=== PATIENT | female | born 1965 | race Caucasian/White ===

== ENCOUNTER 2019-03-10 14:49 | Emergency (ER) | payer OTHER ==
[~2019-03-10] VITALS: Ht 157.5 cm; Wt 79.4 kg
[~2019-03-10 14:49] MED LIST: APAP650 PO; ASA81BEC PO; ATIVAN0.5 MG PO; ATIVAN1 MG; FLEXERIL; FLEXERIL PO; HYDROCODON-ACE1 EAC8; IBUPROFEN 800800 M1 PO; LIPITOR10 MG PO; LORAZEPAM 1 MG T1 M1 PO; MYRBETRIQ50 MG PO; NAPROSYN500 MG PO; NORCO 5-325 TA1 EACH PO; OXYCODONE-ACET1 EACH PO; PROGESTERONE200 MG
[2019-03-10 18:00] VITALS: BP 172/103
== END 2019-03-10 18:02 | disposition home or self-care (01) ==
LOC: ER 14:49
DX: S29.012A Strain of muscle and tendon of back wall of thorax, initial encounter (principal); S39.012A Strain of muscle, fascia and tendon of lower back, initial encounter; S13.4XXA Sprain of ligaments of cervical spine, initial encounter; S00.83XA Contusion of other part of head, initial encounter; Z90.49 Acquired absence of other specified parts of digestive tract; Z98.890 Other specified postprocedural states; Z90.89 Acquired absence of other organs; Z86.718 Personal history of other venous thrombosis and embolism; Z88.6 Allergy status to analgesic agent; Z88.8 Allergy status to other drugs, medicaments and biological substances; V89.2XXA Person injured in unspecified motor-vehicle accident, traffic, initial encounter; Y92.89 Other specified places as the place of occurrence of the external cause; Y93.89 Activity, other specified; Y99.8 Other external cause status